=== PATIENT | female | born 1965 | race Two or more races ===

== ENCOUNTER 2022-09-25 07:50 | Outpatient (REF) | payer MEDICAID, SELFPAY ==
--- NOTE | ~2022-09-25 | MM_ITS ---
EXAMINATION: MM SCREENING DIGITAL BREAST TOMOSYNTHESIS, BILATERAL CLINICAL INFORMATION: Screening. Asymptomatic. The lifetime risk of breast cancer based on the Tyrer-Cuzick Model is 4%. COMPARISON: Mammography: 10/12/2019, 10/06/2018, 06/29/2017 TECHNIQUE: Digital breast tomosynthesis is performed in both the craniocaudal and mediolateral oblique views along with computer-aided detection (CAD). Synthesized 2D images are generated from the tomosynthesis. FINDINGS: The breasts are heterogeneously dense, which may obscure small masses (ACR BI-RADS breast composition Category c). There are scattered bilateral minor stable asymmetries. No developing density or architectural abnormality. Breast tissue composition borders on average fibroglandular. There are no significant masses, abnormal calcifications, or other abnormalities. The axilla and skin contours are unremarkable. MM/MM tomosynthesis screening BI IMPRESSION: No mammographic evidence of malignancy. ASSESSMENT: BI-RADS 2: Benign RECOMMENDATION: Routine annual mammography screening. This patient's information was entered into a reminder system with a target due date for their next mammogram.
== END 2022-09-25 07:51 | disposition home or self-care (01) ==
LOC: HO.MAMMO 07:50
PROVIDERS: PCP Nurse Practitioner Family; Visit Provider Nurse Practitioner Family
DX: Z12.31 Encounter for screening mammogram for malignant neoplasm of breast (principal)
CPT/HCPCS: 77063; 77067

== ENCOUNTER 2023-01-16 15:06 | Outpatient (REF) | payer MEDICAID, SELFPAY ==
--- NOTE | ~2023-01-16 | XR_ITS ---
EXAMINATION: XR HIP, LEFT CLINICAL INFORMATION: Left greater trochanteric bursitis. COMPARISON: Radiographs dated 06/08/2017 TECHNIQUE: AP and frog-leg lateral views of the left hip. FINDINGS: Bony alignment and mineralization are normal. The left acetabular joint space is well-maintained. The left acetabular roof shows slight subchondral sclerosis and a minimal peripheral osteophyte. The left femoral head is smooth. No fracture or dislocation is seen. The bilateral sacroiliac joints and the pubic symphysis are intact. There are multiple pelvic phleboliths. XR/XR hip LT min 2V IMPRESSION: There is slight osteoarthritic change of the left hip. No fracture or dislocation is seen.
== END 2023-01-16 15:07 | disposition home or self-care (01) ==
LOC: HO.HHCX 15:06
PROVIDERS: Visit Provider Nurse Practitioner Family
DX: M70.62 Trochanteric bursitis, left hip (principal)
CPT/HCPCS: 73502

== ENCOUNTER 2023-02-12 10:55 | Outpatient (AMB) | payer MEDICAID, SELFPAY ==
--- NOTE | 2023-02-12 10:58 | MHC.OFFVIS ---
Intake Intake Visit Reasons: Greater trochanteric Bursitis of Lt hip Intake Note: Clarita is a 57 year old female who presents today as a new patient with complaints of left hip pain. Pain is felt in the lateral aspect of the left hip, radiates to the knee and is worsened with movement. Utilizes topical heat and cold application. Takes Naproxen which does help but causes stomach upset. Allergies No Known Allergies [No Known Allergies*] Allergy (Unverified 01/05/20 19:10) HPI Greater trochanteric Bursitis of Lt hip HPI Details Clarita is a 57 year old woman who presents with complaints of left hip pain. She complains of pain in the lateral aspect of her hip, which occasionally radiates down towards her knee. Her pain is worse with movement. She denies any groin pain. She uses ice, heat, and Naproxen for pain relief, though the Naproxen causes GI upset. Review of Systems Const All systems reviewed & are unremarkable except as noted in HPI and below Physical Exam Const General: no acute distress, alert and awake Orientation/consciousness: patient oriented x3 HEENT Head: Yes normocephalic and Yes atraumatic Eyes EOM: EOMs intact bilaterally Resp Effort & Inspection: normal respiratory effort and able to speak in complete sentences Cardio Jugular venous distension: no JVD Skin General skin exam: turgor normal Rashes: no rashes Neuro General: patient oriented x3 Extrem Other: No groin pain with hip range of motion Tenderness to palpation along the anterior superior iliac spine. Less so along the greater trochanter. Psych Appearance: grossly normal Affect: normal affect Attitude: cooperative Results Reviewed Results Reviewed: I personally reviewed relevant radiographs. Nl left hip radiographs Assessment & Plan Assessment & Plan (1) Greater trochanteric bursitis of left hip: Code(s): M70.62 - Trochanteric bursitis, left hip Plan: This is a 57 year old woman with left trochanteric bursitis. She has pain in the lateral aspect of her left hip, worse with movement or and at night. She takes Naproxen, with good relief, but this causes GI upset. I discussed her diagnosis and treatment options. She deferred on injections and I discussed other treatment options. At this time she will let me know if there is anything additional she is interested in. Coding Level of Care Code Est Pt Level 3 (20462) Diagnoses Greater trochanteric bursitis of left hip M70.62
== END 2023-02-12 11:16 | disposition home or self-care (01) ==
PROVIDERS: PCP Nurse Practitioner Family; Visit Provider Orthopaedic Surgery
DX: M70.62 Trochanteric bursitis, left hip (principal)
CPT/HCPCS: 99213

== ENCOUNTER → 2023-02-12 10:55 | Outpatient (BNVA) | payer MEDICAID, SELFPAY | PROVIDERS: PCP Nurse Practitioner Family; Visit Provider Orthopaedic Surgery | DX: M70.62 Trochanteric bursitis, left hip (principal) | CPT/HCPCS: 99212 ==

== ENCOUNTER 2023-03-11 10:02 | Outpatient (REF) | payer MEDICAID, SELFPAY ==
[2023-03-13 17:18] LABS: Rubella IgG Antibody 7.28 Index; Rubeola IgG (Measles) >300.00 AU/mL
== END 2023-03-11 10:03 | disposition home or self-care (01) ==
LOC: HO.HHCL 10:02
PROVIDERS: Visit Provider Nurse Practitioner Family
DX: Z28.39 Other underimmunization status (principal)
CPT/HCPCS: 36415; 86735; 86762; 86765

== ENCOUNTER 2023-07-10 09:29 | Emergency (ER) | payer MEDICAID, SELFPAY ==
[2023-07-10 10:14] VITALS: BP 118/71; PULSE 89; RESP 16; TEMP 37.2; O2SAT 98; BMI 26.9
[2023-07-10 11:15] LABS: Influenza A PCR POSITIVE (Negative); Influenza B PCR NEGATIVE (Negative); Resp Syncy Virus RNA Qual PCR NEGATIVE (Negative); SARS COV2 PCR INHOUSE NEGATIVE (Negative)
[2023-07-10 12:23] VITALS: BP 126/73; PULSE 103; RESP 18; TEMP 36.9; O2SAT 98
[2023-07-10 12:24] VITALS: BP 126/73; PULSE 94; RESP 16; TEMP 36.7; O2SAT 98
--- NOTE | 2023-07-10 12:26 | ED.GENADULT ---
HPI - General Adult General Chief complaint: General Medical Stated complaint: Cough Headache Time Seen by Provider: 07/10/23 12:02 Source: patient Mode of arrival: ambulatory Limitations: no limitations History of Present Illness HPI narrative: Patient comes to the emergency room complaining of 3 days of nausea, diffuse body aches. One episode of vomiting and diarrhea this morning. Patient states that she has diffuse body aches. Patient denies chest pain or shortness of breath, no fevers. Related Data Previous Rx's Medication Instructions Recorded loperamide 2 mg capsule 2 mg PO Q4H PRN loose stool #14 07/10/23 caps ondansetron 4 mg disintegrating 4 mg PO Q6H PRN nausea and 07/10/23 tablet vomiting #14 tabs Allergies Allergy/AdvReac Type Severity Reaction Status Date / Time No Known Allergies Allergy Unverified 07/10/23 10:14 [No Known Allergies*] Review of Systems Review of Systems: Constitutional : No Weight loss, No Fever, No Chills, No Night Sweats, complaining of fatigue and generalized malaise ENT/Mouth : No Hearing loss, No Ear Pain, No Nasal Congestion, No Sinus Pain, No Hoarseness, No sore throat, No Rhinorrhea, No Swallowing Difficulty Eyes: No Eye Pain, No Swelling, No Redness, No Foreign Body, No Discharge, No Vision Changes Cardiovascular : No Chest Pain, No SOB, No Dyspnea on Exertion, No Orthopnea, No Edema, No Palpitations Respiratory : No Cough, No Sputum, No Wheezing, No Smoke Exposure, No Dyspnea Gastrointestinal : Complaining of nausea, 1 episode of vomiting and diarrhea, No Constipation, No abdominal Pain, No Hematochezia, No Melena Genitourinary : no irregular bleeding, No Dysuria, No Urinary Frequency, No Hematuria, No Urinary Incontinence, No Urgency, No Flank Pain, No Urinary Flow Changes, No Hesitancy Musculoskeletal : No joint pain, No Myalgias, No Joint Swelling Skin : No Skin Lesions, No rash Neuro : No Weakness, No Numbness, No Paresthesias, No Loss of Consciousness, No Dizziness, No Headache Psych : No Anxiety/Panic, No Depression, No SI/HI/AH/VH, No Social Issues, Heme/Lymph: No Bruising, No Bleeding,No Lymphadenopathy Endocrine : No Polyuria, No Polydipsia, No Temperature Intolerance Physical Exam ED Vital Signs: Vital Signs - 24 hr 07/10/23 10:14 07/10/23 12:23 07/10/23 12:24 Temperature 98.9 F 98.4 F 98.1 F Pulse Rate 89 103 H 94 Respiratory Rate 16 18 16 Blood Pressure 118/71 126/73 126/73 Pulse Oximetry 98 98 98 Oxygen Delivery Method Room Air Room Air Room Air BMI result Body Mass Index 26.9 Const Other: Appearance: Alert. Oriented X3. No acute distress. Well-appearing Eyes: Pupils equal, round and reactive to light. ENT: Pharynx normal. Neck: Normal inspection. Neck supple. No lymph nodes noted. No crepitus CVS: Normal heart rate and rhythm. Pulses normal. Normal S1 and S2 Respiratory: No respiratory distress. Breath sounds normal. No Wheezing. No rales Abdomen: Soft and nontender. No rigidity. No distention. Skin: Skin warm and dry. Normal skin color. Normal skin turgor. Extremities: No lower extremity edema. No Lacerations. No Rash Neuro: Oriented X 3. No motor deficit. No sensory deficit. Moving all extremities. No slurred speech. CN 2 through 12 grossly intact Psych: calm, cooperative, normal affect Medical Decision Making Medical Decision Making [facility] Narrative: -my interpretation of labs: Patient's serology test was positive for influenza. -patient does not seem dehydrated, patient well appearing, vitals normal, no fever, no tachycardic, normal blood pressure. Sepsis not suspected Differential Diagnosis Differential Diagnoses: The differential diagnosis associated with the presentation includes (Influenza, COVID, viral syndrome, gastroenteritis) Lab Data [facility] Lab Attestation statement: I reviewed the patient's lab results. Labs: Lab Results 07/10/23 Range/Units 10:22 Influenza Type A (PCR) POSITIVE A (Negative) Influenza Type B (PCR) NEGATIVE (Negative) RSV RNA Qual (PCR) NEGATIVE (Negative) SARS-CoV-2 RNA (RT-PCR) NEGATIVE (Negative) Discharge Plan Discharge Clinical Impression: Influenza A, Nausea & vomiting Patient Disposition: Home, Self-Care Instructions: Influenza (ED), Acute Nausea and Vomiting (ED) Additional Instructions: Please follow-up with your primary care physician tomorrow. If you have any worsening or new symptoms, please return to the emergency room or call 911 Prescriptions: New ondansetron 4 mg tablet,disintegrating 4 mg PO Q6H PRN (Reason: nausea and vomiting) Qty: 14 0RF loperamide 2 mg capsule 2 mg PO Q4H PRN (Reason: loose stool) Qty: 14 0RF Rx Instructions: administer after each loose stool until symptoms controlled; do not exceed 8 mg per 24 hrs Interventions: ED Discharge Assessment Last Done: 07/10/23 12:24
== END 2023-07-10 12:32 | disposition home or self-care (01) ==
PROVIDERS: Emergency Provider Emergency Medicine; PCP Nurse Practitioner Family
DX: J10.1 Influenza due to other identified influenza virus with other respiratory manifestations (principal); R11.2 Nausea with vomiting, unspecified; Z11.52 Encounter for screening for COVID-19; Z20.828 Contact with and (suspected) exposure to other viral communicable diseases
CPT/HCPCS: 0241U; 99282; 99283

== ENCOUNTER 2023-07-13 15:32 | Outpatient (REF) | payer MEDICAID, SELFPAY ==
[2023-07-13 17:53] LABS: Basophils Percent Auto 0.3 % (0-2); Eosinophils Absolute Auto 0.1 X10*3/uL (0.0-0.4); Eosinophils Percent Auto 0.9 % (0-4); Hematocrit 38.7 % (37.0-47.0); Hemoglobin 12.3 g/dl (12.0-16.0); Imm Gran Abs Auto 0.01 X10*3/uL (0.00-0.03); Imm Gran Pct Auto 0.2 % (0.0-0.4); Lymphocytes Absolute Auto 3.4 X10*3/uL (1.2-4.9); Lymphocytes Percent Auto 57.7 % (20-40); MANUAL DIFF FLAG SCAN; Mean Corpuscular HGB Conc 31.8 g/dl (31.0-35.0); Mean Corpuscular Hemoglobin 27.2 pg (27.0-33.0); Mean Corpuscular Volume 85.4 fL (80.0-98.0); Mean Platelet Volume 9.4 fL (9.4-12.3); Monocytes Absolute Auto 0.3 X10*3/uL (0.1-1.2); Monocytes Percent Auto 4.3 % (2-11); Neutrophils Absolute Auto 2.2 x10*3/uL (2.0-8.3); Neutrophils Percent Auto 36.6 % (45-73); Platelet Count 232 X10*3/uL (160-400); Red Blood Count 4.53 X10*6/uL (4.20-5.50); Red Cell Distribution Width 13.2 % (11.0-16.0); SCAN SMEAR FLAG 1; White Blood Count 5.9 X10*3/uL (4.8-10.8)
[2023-07-13 18:04] LABS: Alanine Aminotransferase 34 U/L (0-31); Albumin Level 4.2 g/dL (3.5-5.0); Alkaline Phosphatase 69 U/L (39-117); Anion Gap 10 (12-20); Aspartate Amino Transferase 32 U/L (5-31); Bilirubin Total 0.4 mg/dL (0.0-1.0); Blood Urea Nitrogen 16 mg/dL (9-16); Calcium 9.4 mg/dL (8.4-10.2); Carbon Dioxide 31 mmol/L (22-29); Chloride 105 mmol/L (96-108); Estimated Glomerular Filt Rate > 60; Glucose Random 91 mg/dL (60-115); Magnesium 2.1 mg/dL (1.6-2.6); Potassium 4.6 mmol/L (3.3-5.1); Sodium 141 mmol/L (135-145); Total Protein 7.3 g/dL (6.5-8.0)
[2023-07-13 18:24] LABS: SLIDE REVIEW VERIFIED
== END 2023-07-13 15:33 | disposition home or self-care (01) ==
LOC: HO.HHCL 15:32
PROVIDERS: Visit Provider Nurse Practitioner Family
DX: M79.661 Pain in right lower leg (principal); M79.662 Pain in left lower leg
CPT/HCPCS: 36415; 80053; 83735; 85025

== ENCOUNTER 2023-10-01 07:40 | Outpatient (REF) | payer MEDICAID, SELFPAY | END 2023-10-01 07:41 | disposition home or self-care (01) | LOC: HO.MAMMO 07:40 | PROVIDERS: PCP Nurse Practitioner Family; Visit Provider Nurse Practitioner Family | DX: Z12.31 Encounter for screening mammogram for malignant neoplasm of breast (principal) | CPT/HCPCS: 77063; 77067 ==

== ENCOUNTER → 2023-10-01 07:45 | Outpatient (BNV) | payer MEDICAID, SELFPAY | PROVIDERS: PCP Nurse Practitioner Family; Visit Provider Radiology Diagnostic Radiology | DX: Z12.31 Encounter for screening mammogram for malignant neoplasm of breast (principal) | CPT/HCPCS: 77063; 77067 ==

== ENCOUNTER 2024-02-25 15:03 | Emergency (ER) | payer MEDICAID, SELFPAY ==
--- NOTE | ~2024-02-25 | XR_ITS ---
EXAMINATION: XR LUMBOSACRAL SPINE CLINICAL INFORMATION: Pain. COMPARISON: None available. TECHNIQUE: Three views of the lumbosacral spine. FINDINGS: No acute compression deformity or subluxation. Mild multilevel intervertebral disc height loss and facet arthropathy. Small to moderate multilevel anterior marginal osteophytes more prominent in the thoracic spine. No significant paraspinal soft tissue abnormality. XR/XR lumbar spine 2-3V IMPRESSION: 1. No acute compression deformity or subluxation. 2. Mild to moderate lumbar spondylosis. Electronically signed by: Mirella Price MD 02/25/2024 06:21 PM [facility]
[2024-02-25 15:27] VITALS: BP 108/68; PULSE 71; RESP 16; TEMP 36.8; O2SAT 96; BMI 27.3
--- NOTE | 2024-02-25 15:31 | ED.BACK ---
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 The pain will occasionally radiate into bilateral thighs. She has been applying a heat pack to the area without improvement. She has not trialed any OTC pain meds for this. Denies blunt trauma or injury to the back. No hx of similar. Denies IV drug use. Denies fever, chills, neck pain, bowel or bladder incontinence or retention, numbness/tingling/weakness in the lower extremities, dysuria, hematuria, saddle anesthesia. physician office specialist utilized throughout visit to communicate with patient. Related Data Previous Rx's ?Medication ?Instructions ?Recorded loperamide 2 mg capsule 2 mg PO Q4H PRN loose stool #14 07/10/23 caps ondansetron 4 mg disintegrating 4 mg PO Q6H PRN nausea and 07/10/23 tablet vomiting #14 tabs lidocaine 5 % topical patch 1 patch topical DAILY #15 ea 02/25/24 (Lidoderm) naproxen 500 mg tablet 500 mg PO Q8-12H PRN pain (scale 02/25/24 score 1-3) #20 tabs Allergies Allergy/AdvReac Type Severity Reaction Status Date / Time sumatriptan [From IMITREX] Allergy Intermediate RASH Verified 02/25/24 19:57 Review of Systems Review of Systems: Constitutional: No fever, chills, fatigue, night sweats, weight changes ENT/Mouth: No ear pain, hearing loss, nasal congestion, sinus pain, rhinorrhea, sore throat Eyes: No eye pain, swelling, redness, vision changes, discharge Cardio: No chest pain, palpitations, ADHIKARI, orthopnea, peripheral edema Pulm: No SOB, cough, sputum, wheezing, dyspnea, hemoptysis GI: No nausea, vomiting, hematemesis, abdominal pain, diarrhea, constipation, hematochezia, melena : No irregular bleeding, dysuria, frequency, urgency, hesitancy, hematuria, flank pain, urinary flow changes, urinary incontinence or retention MSK: +back pain, No neck pain, joint pain, myalgias Skin: No lesions, rashes Neuro: No weakness, numbness, paresthesias, LOC, dizziness, headache All other systems reviewed and are negative. [facility] Past Medical History Attestation statement: The following information was validated with the patient. Source: old records reviewed and nursing notes reviewed Medical History Postmenopausal Screening for cervical cancer Physical exam Right sided sciatica Dyslipidemia Polyarthralgia Allergic rhinitis GERD (gastroesophageal reflux disease) Pain Surgical History History of hemorrhoidectomy History of tubal ligation Social History Social History Household Members: Spouse Housing: House Alcohol intake: never Patient Tobacco Use Status: Never used Tobacco Smoked in Last 30 Days: No e-Cigarette/Vaping Use: Never Used Second Hand Smoke Exposure: No Use of substances other than those prescribed or required for medical reasons: No Advance Directives: No Advance Directives Information Provided: No service: No Current occupational status: unemployed 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 Skin: Warm, dry, intact. No rashes or lesions. Head: Normocephalic, atraumatic. Cardiac: Chest wall symmetric. RRR Lungs: Normal respiratory effort without accessory muscle use. CTA bilaterally. No rales, rhonchi, or wheezes.? Abdomen: Soft, non-tender, non-distended. No rebound tenderness or guarding. no CVAT. Back: No midline spinous tenderness or step-off deformity. There is bilateral lumbar paraspinal muscle tenderness without palpable mass. Ext: Upper and lower extremities atraumatic, without tenderness, deformity, swelling or erythema. Full ROM throughout. Neuro: AOx3. Normal speech. Strength 5/5 intact throughout. No saddle anesthesia. Sensation intact to light touch. NV intact distally. Reflexes 2+ bilaterally. Ambulating with steady gait. Course Course Course Narrative: 193 -- xr lumbar spine w/o fracture. likely lumbar strain after bending over. toradol and lido patch provided in ED for pain control. I have offered to send Flexeril to pharmacy for further treatment however patient is declining at this time. Would like naproxen sent to her pharmacy. Patient has remained stable throughout ED visit today. Discussed worrisome signs and symptoms and when to return to the ED. All questions answered at this time. Patient is agreeable with disposition and stable for discharge. Medications Administered Discontinued Medications Generic Name Dose Route Start Last Admin Trade Name Freq PRN Reason Stop Dose Admin Ketorolac Tromethamine 30 mg 02/25/24 19:21 02/25/24 19:57 Ketorolac Tromethamine 30 Mg/Ml Vial IM 02/25/24 19:22 30 mg ONCE ONE Administration Lidocaine 1 patch 02/25/24 19:21 02/25/24 19:57 Lidocaine 4 % Patch Adh..Patch TRANSDERMA 02/25/24 19:22 1 patch ONCE ONE Administration Protocol Medical Decision Making Medical Decision Making [facility] Narrative: 58 year old female with pmhx significant for GERD and HDL presents to the ED today for evaluation of bilateral lower back pain which began after bending over to pick something up off of the floor 1 week ago. Vital signs stable. Afebrile. she is nontoxic appearing and in NAD. She is sitting comfortably on the exam bed. on exam, there is no midline spinous tenderness or step off deformity. there is bilateral paraspinal muscle tenderness without palpable mass. no cvat. nv intact distally. ambulating with steady gait. Differential diagnosis includes MSK sprain/strain, fracture, subluxation, disc herniation, sciatica. I do not have suspicion for UTI, nephrolithiasis, renal colic, hydronephrosis. Unlikely cord compression, cauda equina, Guillain-[place], epidural abscess. Plan for imaging, pain control, and re-evaluation. Differential Diagnosis Differential Diagnoses: The differential diagnosis associated with the presentation includes as above Admission/Observation Not indicated. Independent Interpretation I performed an independent interpretation of an: Plain X-Ray Interpretation: xr without fracture Radiology Impression Discussion of test interpretation with radiology: I have reviewed the radiologist's reading. Radiologist Impression: EXAMINATION: XR LUMBOSACRAL SPINE CLINICAL INFORMATION: Pain. COMPARISON: None available. TECHNIQUE: Three views of the lumbosacral spine. FINDINGS: No acute compression deformity or subluxation. Mild multilevel intervertebral disc height loss and facet arthropathy. Small to moderate multilevel anterior marginal osteophytes more prominent in the thoracic spine. No significant paraspinal soft tissue abnormality. XR/XR lumbar spine 2-3V IMPRESSION: 1. No acute compression deformity or subluxation. 2. Mild to moderate lumbar spondylosis. Electronically signed by: Mirella Price MD 02/25/2024 06:21 PM [facility] Prescription Management I considered prescription management with: Other (flexeril, lido patch) Social Determinants Patient?s care significantly limited by Social Determinants of Health including: Other Social Determinant of Health Critical Care Time Critical Care Time Critical Care Time: No Discharge Plan Discharge Clinical Impression: Lumbar spine strain Patient Disposition: Home, Self-Care Instructions: Muscle Strain (ED), Acute Low Back Pain (ED), Lower Back Exercises (ED) Additional Instructions: You were evaluated in the Emergency Department today for your back pain.? Your evaluation did not show signs of medical conditions requiring emergent intervention at this time. Avoid bending, lifting, or twisting. Use ice several times per day for 20 minutes at a time for the next 48 hours and then change to heat. Naproxen has been sent to your pharmacy for you to take as needed for pain. Do not take this with other NSAIDs such as ibuprofen or Aleve as this can cause increased risk of GI bleeding. Lidoderm patches are numbing patches. Apply to painful areas. Please schedule an appointment for follow-up with your primary care provider this week for further evaluation of your symptoms. Return to the Emergency Department if you experience worsening back pain, difficulty walking, fevers, numbness, tingling, incontinence, or any other concerning symptoms. In the case of an emergency call 911. Prescriptions: New lidocaine [Lidoderm] 5 % adhesive patch,medicated 1 patch topical DAILY Qty: 15 0RF Rx Instructions: leave on most painful area for up to 12 hrs naproxen 500 mg tablet 500 mg PO Q8-12H PRN (Reason: pain (scale score 1-3)) Qty: 20 0RF No Action ondansetron 4 mg tablet,disintegrating 4 mg PO Q6H PRN (Reason: nausea and vomiting) Qty: 14 0RF loperamide 2 mg capsule 2 mg PO Q4H PRN (Reason: loose stool) Qty: 14 0RF Rx Instructions: administer after each loose stool until symptoms controlled; do not exceed 8 mg per 24 hrs Stand Alone Forms: Work/School Release Interventions: ED Discharge Assessment Last Done: 02/25/24 20:09 Discharge Date/Time: 02/25/24 20:10 Print Language: Micronesian
[2024-02-25 19:57] VITALS: BP 101/58; PULSE 65; RESP 15; TEMP 36.6; O2SAT 98
[2024-02-25] MEDS: Ketorolac Tromethamine 30 MG/ML VIAL IM (19:57)
[2024-02-25] MEDS: Lidocaine 4 % Patch ADH..PATCH 1 PATCH TRANSDERMA (19:57)
[2024-02-25 20:09] VITALS: BP 101/58; PULSE 65; RESP 16; TEMP 36.6; O2SAT 98
== END 2024-02-25 20:10 | disposition home or self-care (01) ==
PROVIDERS: Emergency Provider Emergency Medicine
DX: S39.012A Strain of muscle, fascia and tendon of lower back, initial encounter (principal); X50.1XXA Overexertion from prolonged static or awkward postures, initial encounter; Y93.89 Activity, other specified; Y92.89 Other specified places as the place of occurrence of the external cause; Y99.8 Other external cause status; Z79.899 Other long term (current) drug therapy
CPT/HCPCS: 72100; 96372; 99284; J1885

== ENCOUNTER 2024-10-05 07:34 | Outpatient (REF) | payer MEDICAID, SELFPAY ==
--- NOTE | ~2024-10-05 | MM_ITS ---
EXAMINATION: MM SCREENING DIGITAL BREAST TOMOSYNTHESIS, BILATERAL CLINICAL INFORMATION: Screening. Asymptomatic. COMPARISON: Mammography: Comparison is made with available priors TECHNIQUE: Digital breast mammography with tomosynthesis is performed in both the craniocaudal and mediolateral oblique views along with computer-aided detection (CAD). FINDINGS: The breasts are heterogeneously dense, which may obscure small masses (ACR BI-RADS breast composition Category c). There are no significant masses, abnormal calcifications, or other abnormalities. MM/MM tomosynthesis screening BI IMPRESSION: No mammographic evidence of malignancy. ASSESSMENT: BI-RADS BI-RADS 1 - Negative RECOMMENDATION: Routine annual mammography screening. 1 year F/U This examination should not preclude the clinical evaluation of a suspicious palpable abnormality. This patient's information was entered into a reminder system with a target due date for their next mammogram. Electronically signed by: Anne Aguilar DO 10/10/2024 12:08 PM EDT
== END 2024-10-05 07:35 | disposition home or self-care (01) ==
LOC: HO.MAMMO 07:34
PROVIDERS: PCP Internal Medicine; Visit Provider Nurse Practitioner Family
DX: Z12.31 Encounter for screening mammogram for malignant neoplasm of breast (principal)
CPT/HCPCS: 77063; 77067

== ENCOUNTER → 2024-10-05 07:45 | Outpatient (BNV) | payer MEDICAID, SELFPAY | PROVIDERS: PCP Internal Medicine; Visit Provider Internal Medicine | DX: Z12.31 Encounter for screening mammogram for malignant neoplasm of breast (principal) | CPT/HCPCS: 77063; 77067 ==

== ENCOUNTER 2025-01-17 20:47 | Emergency (ER) | payer MEDICAID, SELFPAY ==
--- NOTE | ~2025-01-17 | XR_ITS ---
CLINICAL HISTORY: pain compression fx? 3 views lumbar spine Comparison: X-rays of the lumbar spine from 02/25/2024 Findings: Normal heights of the 5 lumbar vertebrae. No significant listhesis or change in vertebral alignments. Degenerative disc changes and facet arthropathy redemonstrated. Sacrum, SI joints, and hips are obscured. Moderate stool burden partially imaged in the [id number]. IMPRESSION: 1. No acute compression fracture of the imaged lumbar vertebrae. 2. Degenerative changes include facet arthropathy. This document has been electronically signed by: Kraig Mancia MD on 01/18/2025 02:34:21
[2025-01-17 21:12] VITALS: PULSE 71; RESP 16; TEMP 36.9; O2SAT 98; BMI 26.8
--- OUTSIDE RECORDS SUMMARY | 2025-01-17 22:42 | XMS_ITS | Encounter Summary ---
Author Organization [employer] Address [address] [facility] 7[address] [place] [address] Care Team Providers Care Laser Beam Trim Operator Name Role Phone Wendy Delaney Primary Care Provider [phone] Meagan Melendez MD Primary Care Provide r Encounter Details Date Type Department Care Team ([facility] st Contact Info) Description 02/04/[address] [facility] [address] [place] [address] Wendy Delaney FNP [address] [place] [address] Immunization deficiency (Primary Dx) Social History Tobacco Use Types Packs/Day Years Used Date Smoking Tobacco: Never Smokeless Tobacco: Never Alcohol Use Standard Drinks/Week Comments Never 0 (1 standard drink = 0.6 oz pur e alcohol) Depression Answer Date Recorded Patient Health Questionnaire-9 Score 1 07/18/2022 Housing Stability Answer Date Recorded What is your housing situation today? I have samantha davidson 02/02/[address] you li ve. Do you have problems with any of the following? None of the above 02/02/2023 Food Insecurity Answer Date Recorded Within the past 12 months, y ou worried that your food would run out before you got money to buy more: Never True 02/02/2023 Within the past 12 months,th e food you bought just didn't last and you didn't have enough money to get more: Never True Transportation Answer Date Recorded In the past 12 months, has l ack of transportation kept you from medical appts, meetings, work or from getting things needed for daily living? No 02/02/2023 Utilities Answer Date Recorded In the past 12 months, has t he electric, gas, oil or water company threatened to shut off services in your home? No 02/02/2023 Depression Answer Date Recorded Patient Health Questionnaire-2 Score 0 07/18/2022 Comments Unknown Sex and Gender Information Value Date Recorded Sex Assigned at Female 02/17/2022 10:30 AM EDT Legal Sex Female 10:30 AM EDT Gender Identity Female 02/17/2022 10:30 AM EDT Sexual Orientation Straight 02/17/2022 10 :30 AM EDT documented as of this encounter Plan of Treatment Upcoming Encounters Date Type Department Care Team (Late st Contact Info) Description 03/07/2025 2:30 PM EST Office Visit [facility] [address] [place] [address] Juan, [place], OD [address] [place] [address] documented as of this encounter Procedures Procedure Name Priority Date/Time Associated Diagnosis Comments MEASLES, MUMPS, AND RUBELLA (MMR) AB (IGG) PANEL, IMMUNE STATUS Routine 03/11/2023 10:07 AM EST Immunization deficiency documented in this encounter Results * Measles, Mumps, and Rubella (MMR) Antibodies??(IgG) Panel, Immune Status (03/11/2023 10:07 AM EST) Mumps Virus IgG Antibody 106.00 AU/mL [facility] Comment:AU/mL Interpretation ------- <9.00 Not consistent with immunity9.00-10.99 Equivocal>10.99 Consistent with immunityThe presence of mumps IgG antibody suggests immunizationor past or current infection with mumps virus. Rubella IgG Antibody 7.28 Index [facility] Comment:Index Interpretation ----- <0.90 Not consistent with immunity 0.90-0.99 Equivocal > or = 1.00 Consistent with immunityThe presence of rubella IgG antibody suggestsimmunization or past or current infection withrubella virus.THIS TEST WAS PERFORMED AT:[facility] [place] [id number] REAL MD Rubeola IgG (Measles) >300.00 AU/mL [facility] Comment:AU/mL Interpretation ----- <13.50 Not consistent with tkeguhcv41.50-16.49 Equivocal>16.49 Consistent with immunityThe presence of measles IgG suggests immunization orpast or current infection with measles virus.For additional information, please refer [email or web address].[employer]/faq/[email or web address](This link is being provided for informational/educational purposes only.) Blood 03/11/2023 10:0 7 AM EST 03/11/2023 11:59 AM EST Wendy RAMIREZ LAB BLOOD ORDERABLES Final Resu lt [facility] [address] [place] [address] [phone] documented in this encounter Visit Diagnoses Diagnosis Immunization deficiency- Primary documented in this encounter Additional Health Concerns Assessment Noted Time PHQ-9 Depression Total Score: 1 07/19/19 23 2:13 PM EDT documented as of this encounter Care Teams Laser Beam Trim Operator Relationship Specialty Start Date End Date Wendy Delaney FNP [address] [place] [address] PCP - General Family Medicine 11/06/22 12/22/23 Meagan Melendez MD [address] [place] [address] PCP - General Internal Medicine 12/23/23 documented as of this encounter
--- OUTSIDE RECORDS SUMMARY | 2025-01-17 22:42 | XMS_ITS | Clinical Summary ---
Author Organization [employer] Address [address] [facility] 7[address] [place] [address] Care Team Providers Care Data Warehousing Specialist Name Role Phone Meagan Melendez MD Primary Care Provide r Allergies No known active allergies Medications pantoprazole (Protonix) 40 MG EC tabletIndicatio ns:PUD (peptic ulcer disease) Take 1 tablet (40 mg) by mouth before breakfast. Do not crush, chew, or split. 30 tablet 11 4 03/14/20 25 Active cetirizine (ZyrTEC) 10 MG tabletIndicatio ns:Rash TAKE 1 TABLET BY MOUTH DAILY AT BEDTIME NEEDED 90 tablet 1 5 Active triamcinolone (Kenalog) 0.1 % cream Apply topically if needed in the morning and at bedtime (pain and swelling). 45 g 3 5 Active Active Problems Problem Noted Date Diagnosed Date PUD (peptic ulcer disease) 04/07/2024 Assessment & Plan (04/07/2024 7:23 PM EST): Start ppi, reviewed low acid diet, monitor for worsening symptoms. Discontinue naproxen Chronic back pain 04/07/2024 Assessment & Plan (04/07/2024 7:24 PM EST): Acetaminophen ordered for chronic back pain Immunizations Immunization Administration Dates Next Due Hep A, Adult 11/20/2015,12/11/2014 Hep B, adult 09/15/2013 Tdap 08/18/2008 Family History Medical History Relation Name Comments Coronary artery disease Father Diabetes type II Mother Hypertension Mother Stroke Mother Relation Name Status Comments Father Mother Social History Tobacco Use Types Packs/Day Years Used Date Smoking Tobacco: Never Smokeless Tobacco: Never Tobacco Cessation:Counseling Given: Not Answered Alcohol Use Standard Drinks/Week Comments Never 0 (1 standard drink = 0.6 oz pur e alcohol) Depression Answer Date Recorded Patient Health Questionnaire-9 Score 0 03/14/2024 Patient Health Questionnaire-9 Score 0 03/14/2024 Last PHQ-9: Questionnaire Data Not on file 1 05/14/2023 Housing Stability Answer Date Recorded What is your housing situation today? I have samantha davidson 03/10/[address] you li ve. Do you have problems with any of the following? None of the above 03/10/2024 Food Insecurity Answer Date Recorded Within the past 12 months, y ou worried that your food would run out before you got money to buy more: Never True 03/10/2024 Within the past 12 months,th e food you bought just didn't last and you didn't have enough money to get more: Never True Transportation Answer Date Recorded In the past 12 months, has l ack of transportation kept you from medical appts, meetings, work or from getting things needed for daily living? No 03/10/2024 Utilities Answer Date Recorded In the past 12 months, has t he electric, gas, oil or water company threatened to shut off services in your home? No 03/10/2024 Depression Answer Date Recorded Patient Health Questionnaire-2 Score 0 03/14/2024 Internet Access Answer Date Recorded Internet Access Q1 Yes 03/10/2024 Internet Access Q2 Not on file 03/10/2024 Comments Unknown Sex and Gender Information Value Date Recorded Sex Assigned at Female 02/17/2022 10:30 AM EDT Legal Sex Female 10:30 AM EDT Gender Identity Female 02/17/2022 10:30 AM EDT Sexual Orientation Straight 02/17/2022 10 :30 AM EDT Last Filed Vital Signs Vital Sign Reading Time Taken Comments Blood Pressure 107/66 10/10/2024 2:09 PM EDT Pulse 81 10/10/2024 2:09 PM EDT Temperature 36.8 C (98.3 F) 10/10/2024 2:09 PM EDT Respiratory Rate 17 10/10/2024 2:09 PM EDT Oxygen Saturation 97% 08/11/2024 1:42 PM EDT Inhaled Oxygen Concentration - - Weight 64.4 kg (142 lb) 10/10/2024 2:09 PM EDT Height 152.4 cm (5') 10/10/2024 2:09 PM EDT Body Mass Index 27.73 10/10/2024 2:09 PM EDT Plan of Treatment Upcoming Encounters Date Type Department Care Team (Late st Contact Info) Description 03/07/2025 2:30 PM EST Office Visit [facility] [address] [place] [address] Juan, [place], OD [address] [place] [address] Health Maintenance Due Date Last Done Comments CT Colonography 1967 FIT DNA/Cologuard 1967 FIT 1967 FOBT 1965 HIV Screening 1965 Sigmoidoscopy 1965 Disability Screening 1967 Hepatitis C Screening 06/26/1985 Pap Smear 06/26/1988 Cervical Cancer Screening 06/26/1997 HPV/Cotest 06/26/1997 Hepatitis B Vaccines (2 of 3 - 19+ 3-dose series) 10/13/2013 09/15/2013 Pneumococcal Vaccine: 50+ Years (1 of 1 - PCV) 06/26/2017 Zoster Vaccines (1 of 2) 06/26/2017 DTaP/Tdap/Td Vaccines (2 - Td or Tdap) 08/18/2018 08/18/2008 COVID-19 Vaccine (1 - 2023- season) 2024 Influenza Vaccine (#1) 2024 SDOH Screening 03/10/2025 03/10/2024 Alcohol/Substance Use Screening 03/14/2025 03/14/2024 Depression Screening 03/14/2025 03/14/2024, 03/14/20 24 Mammogram 10/05/2025 10/05/2024, 09/18, 09/25/2022, Additional history exists Tobacco Screening 10/10/2025 10/10/2024 Colonoscopy 08/20/2027 Colorectal Cancer Screening 08/20/2027 RSV Patients and Patients Aged 60 years or older (1 - 1-dose 75+ series) 06/26/2042 Hepatitis A Vaccines Aged Out 11/20/2015, 12/12/19 15 No longer eligible based on patient's age to complete this topic HIB Vaccines Aged Out No longer eligi ble based on patient's age to complete this topic HPV Vaccines Aged Out No longer eligi ble based on patient's age to complete this topic IPV Vaccines Aged Out No longer eligi ble based on patient's age to complete this topic Meningococcal B Vaccine Aged Out No l onger eligible based on patient's age to complete this topic Meningococcal Vaccine Aged Out No kiran henna eligible based on patient's age to complete this topic RSV under 20 months Aged Out No longe r eligible based on patient's age to complete this topic Rotavirus Vaccines Aged Out No longer eligible based on patient's age to complete this topic Procedures Procedure Name Priority Date/Time Associated Diagnosis Comments BI MAMMOGRAM SCREENING TOMOSYNTHESIS BILATERAL Routine 10/05/2024 7:40 AM EDT from Last 3 Months or Most Recently Relevant to Health Maintenance Results * BI Mammogram Screening Tomosynthesis Bilateral (10/05/2024 7:40 AM EDT) Anatomical Region Laterality Modality Breast Bilateral Mammography 10/05/2024 7:40 AM EDT Narrative 10/10/2024 12:11 PM EDT [facility] [address] [place] [address] Mammography Report Signed Patient: Clarita Potter MR#: [id number] : 1965 Acct:[id number] Age/Sex: 59 / F ADM Date: 10/05/24 Loc: HO.MAMMO Attending Dr: Wendy Delaney NP Ordering Physician: Wendy Delaney NP Results: 1Negativ e Date of Service: 10/05/24 Follow Up: 1 Year From Orig inal Mammogram Procedure(s): MM tomosynthesis screening BI Accession Number(s): [id number] cc: Wendy Delaney NP; Osborn Doc,Nargis MD EXAMINATION: MM SCREENING DIGITAL BREAST TOMOSYNTHESIS, BILATERAL CLINICAL INFORMATION: Screening. Asymptomatic. COMPARISON: Mammography: Comparison is made with available priors TECHNIQUE: Digital breast mammography with tomosynthesis is performed in both the craniocaudal and mediolateral oblique views along with computer-aided detection (CAD). FINDINGS: The breasts are heterogeneously dense, which may obscure small masses (ACR BI-RADS breast composition Category c). There are no significant masses, abnormal calcifications, or other abnormalities. MM/MM tomosynthesis screening BI IMPRESSION: No mammographic evidence of malignancy. ASSESSMENT: BI-RADS BI-RADS 1 - Negative RECOMMENDATION: Routine annual mammography screening. 1 year F/U This examination should not preclude the clinical evaluation of a suspicious palpable abnormality. This patient's information was entered into a reminder system with a target due date for their next mammogram. Electronically signed by: Anne Aguilar DO 10/10/2024 12:08 PM EDT RP Dictated By: Anne Aguilar DO Signed By: <Electronically signed by Anne Aguilar DO in OV> 10/10/24 1208 DD/ 0740 TD/TT: 10/05/24 0800 Custody Assistant: Procedure Note Donotuseinterpreter, Image - 10/10/2024 [facility] [address] [place], [place] [address] Mammography Report Signed Patient: Clarita Potter#: [id number] : 1965Acct:[id number] Age/Sex: 59 / FADM Date: 10/05/24 Loc: HO.MAMMO Attending Dr: Wendy Delaney NP Ordering Physician: Wendy Delaney NPResults: 1Negativ e Date of Service: 10/05/24Follow Up: 1 Year From Orig inal Mammogram Procedure(s): MM tomosynthesis screening BI Accession Number(s): [id number] cc: Wendy Delaney GASOLINE PUMP INSTALLER; Ana Lagunas MD EXAMINATION: MM SCREENING DIGITAL BREAST TOMOSYNTHESIS, BILATERAL CLINICAL INFORMATION: Screening. Asymptomatic. COMPARISON: Mammography: Comparison is made with available priors TECHNIQUE: Digital breast mammography with tomosynthesis is performed in both the craniocaudal and mediolateral oblique views along with computer-aided detection (CAD). FINDINGS: The breasts are heterogeneously dense, which may obscure small masses (ACR BI-RADS breast composition Category c). There are no significant masses, abnormal calcifications, or other abnormalities. MM/MM tomosynthesis screening BI IMPRESSION: No mammographic evidence of malignancy. ASSESSMENT: BI-RADS BI-RADS 1 - Negative RECOMMENDATION: Routine annual mammography screening. 1 year F/U This examination should not preclude the clinical evaluation of a suspicious palpable abnormality. This patient's information was entered into a reminder system with a target due date for their next mammogram. Electronically signed by: Anne Aguilar DO 10/10/2024 12:08 PM EDT RP Dictated By: Anne Aguilar DO Signed By: <Electronically signed by Anne Aguilar DO in OV> 10/10/24 1208 DD/ 0740 TD/TT: 10/05/24 0800 Custody Assistant: Wendy Delaney ENGINEERING INTERN IMG BI PROCEDURES Final Result from Last 3 Months or Most Recently Relevant to Health Maintenance Insurance [facility] [address] [place] [id number] Care Teams Data Warehousing Specialist Relationship Specialty Start Date End Date Meagan Melendez MD [address] [place] [id number] PCP - General Internal Medicine 12/23/23
[2025-01-17 23:16] LABS: Appearance Urine Clear; Glucose Urine UA Negative (Negative); PH 7.5 (5.0-9.0); Specific Gravity - Urine 1.015 (1.005-1.025); UMIC TRIGGER UACC YES
[2025-01-17 23:56] LABS: UACC Culture Trigger YES
[2025-01-18 01:47] VITALS: BP 100/61; PULSE 62; RESP 20; TEMP 36.4; O2SAT 97
--- NOTE | 2025-01-18 01:51 | ED.GENADULT ---
HPI - General Adult General Chief complaint: Back Pain/Injury Stated complaint: Back pain Time Seen by Provider: 01/18/25 00:20 Source: patient Limitations: language barrier History of Present Illness ED Provider: Melanie Oh PA-C HPI narrative: 59-year-old female with a history of fibromyalgia, chronic lumbar pain, migraine, polyarthralgia, prior bursitis of left hip, prior lumbar radiculopathy, who presents with low back pain x1 day. Patient denies new activity, heavy lifting or fall that could have precipitated her symptoms. The pain wraps around like a band across the low back with radiation down both legs. Denies paresthesia, weakness of lower extremities, urinary retention or bowel incontinence. Denies dysuria, hematuria, history of kidney stones, nausea vomiting or fever. Related Data Previous Rx's ?Medication ?Instructions ?Recorded loperamide 2 mg capsule 2 mg PO Q4H PRN loose stool #14 07/10/23 caps ondansetron 4 mg disintegrating 4 mg PO Q6H PRN nausea and 07/10/23 tablet vomiting #14 tabs lidocaine 5 % topical patch 1 patch topical DAILY #15 ea 02/25/24 (Lidoderm) naproxen 500 mg tablet 500 mg PO Q8-12H PRN pain (scale 02/25/24 score 1-3) #20 tabs ketorolac 10 mg tablet 10 mg PO Q6H PRN pain #20 tabs 01/18/25 methocarbamol 750 mg tablet 1,500 mg (2 x 750 mg) PO Q8H PRN 01/18/25 pain, moderate #24 tabs methylprednisolone 4 mg tablets in 4 mg PO QAM #21 ea 01/18/25 a dose pack (Medrol (Madhav)) Allergies Allergy/AdvReac Type Severity Reaction Status Date / Time sumatriptan (From IMITREX) Allergy Intermediate RASH Verified 01/17/25 21:13 Review of Systems Review of Systems: Yes all other systems are reviewed and are negative Constitutional: Constitutional: Denies fatigue and Denies fever(s) Cardiovascular: Cardiovascular: Denies chest pain and Denies dyspnea Respiratory: Respiratory: Denies dyspnea Gastrointestinal: Gastrointestinal: Denies abdominal pain, Denies nausea and Denies vomiting Genitourinary: Genitourinary: Denies dysuria and Denies flank pain Musculoskeletal: Musculoskeletal: Reports back pain, Denies muscle weakness, Denies numbness, Reports radiating pain into limb and Denies tingling Neurologic: Denies numbness and Denies tingling Endocrine: Endocrine: Denies fatigue [facility] Past Medical History Attestation statement: The following information was validated with the patient. Medical History Postmenopausal Screening for cervical cancer Physical exam Right sided sciatica Dyslipidemia Polyarthralgia Allergic rhinitis GERD (gastroesophageal reflux disease) Pain Surgical History History of hemorrhoidectomy History of tubal ligation Social History Social History Household Members: Spouse Housing: House Alcohol intake: never Patient Tobacco Use Status: Never used Tobacco Smoked in Last 30 Days: No e-Cigarette/Vaping Use: Never Used Second Hand Smoke Exposure: No Use of substances other than those prescribed or required for medical reasons: No Advance Directives: No Advance Directives Information Provided: No Do you have a plan to hurt others: No Plan service: No Current occupational status: unemployed 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 Cognitive needs: No Hearing needs: No Vision needs: Yes Physical Exam ED Vital Signs: Vital Signs - 24 hr 01/17/25 21:12 01/18/25 01:47 Temperature 98.5 F 97.6 F Pulse Rate 71 62 Respiratory Rate 16 20 Blood Pressure 100/61 Pulse Oximetry 98 97 Oxygen Delivery Method Room Air Room Air BMI result Body Mass Index 26.8 Const Other: Alert well-appearing Orientation/consciousness: patient oriented x3 Resp Effort & Inspection: normal respiratory effort Cardio Other: Normal peripheral perfusion Back/Spine/Pelvis Other: No palpable regions of pain no step-offs Skin Other: Warm dry no rash Neuro General: patient oriented x3, gait normal, no focal motor deficits and CN's II-XI intact bilaterally Extrem Other: Strength 5/5 bilateral lower extremities with resistance Psych Other: Cooperative Medications Administered Discontinued Medications Generic Name Dose Route Start Last Admin Trade Name Freq PRN Reason Stop Dose Admin Ketorolac Tromethamine 15 mg 01/18/25 00:20 01/18/25 00:29 Ketorolac Tromethamine 15 Mg/Ml Vial IM 01/18/25 00:21 15 mg ONCE ONE Administration Medical Decision Making Medical Decision Making [facility] Narrative: 59-year-old female with a history of fibromyalgia, chronic lumbar pain, migraine, polyarthralgia, prior bursitis of left hip, prior lumbar radiculopathy, who presents with low back pain x1 day. Patient denies new activity, heavy lifting or fall that could have precipitated her symptoms. The pain wraps around like a band across the low back with radiation down both legs. Denies paresthesia, weakness of lower extremities, urinary retention or bowel incontinence. Denies dysuria, hematuria, history of kidney stones, nausea vomiting or fever. Problem: Chronic pain syndromes History: Per patient I have considered the following differential diagnoses: Lumbar strain, compression fracture, lumbar radiculopathy, cauda equina Plan: I ordered an x-ray it is pending, the patient has chronic lumbar pain, she is having radicular symptoms without red flag signs symptoms concerning for cord compression. We will treat accordingly. Her discomfort is not consistent with a UTI, pyelonephritis or renal colic. She has no symptoms, no mid back pain/flank pain, no active GI symptoms or fever. Urine obtained. I have independently reviewed the following tests: Labs: Urine not infected X-ray lumbar spine: Findings: Normal heights of the 5 lumbar vertebrae. No significant listhesis or change in vertebral alignments. Degenerative disc changes and facet arthropathy redemonstrated. Sacrum, SI joints, and hips are obscured. Moderate stool burden partially imaged in the [id number]. IMPRESSION: 1. No acute compression fracture of the imaged lumbar vertebrae. 2. Degenerative changes include facet arthropathy. Differential Diagnosis Differential Diagnoses: The differential diagnosis associated with the presentation includes See medical decision-making Admission/Observation Consideration of admission/observation: Escalation of care including admission/observation considered Not applicable Lab Data [facility] Lab Attestation statement: I reviewed the patient's lab results. Labs: Lab Results 01/17/25 Range/Units 23:07 Urine Color Yellow Urine Appearance Clear Urine pH 7.5 (5.0-9.0) Ur Specific Gillett 1.015 (1.005-1.025) Urine Protein Negative (Neg-Trace) mg/dL Urine Glucose (UA) Negative (Negative) mg/dL Urine Ketones Negative (Negative) mg/dL Urine Blood Negative (Negative) Urine Nitrite Negative (Negative) Ur Leukocyte Esterase Small (1+) H (Negative) Urine RBC 0-2 (0-2) /HPF Urine WBC 0-5 (0-5) /HPF Ur Squamous Epith Cells 6-10 (0-2) /HPF Urine Bacteria None Seen (None Seen) Hyaline Casts 0-2 (0-2) /LPF Radiology Impression Discussion of test interpretation with radiology: I have reviewed the radiologist's reading. Discharge Plan Discharge Clinical Impression: Bilateral lumbar radiculopathy, Osteoarthritis of lumbar spine, Constipation Patient Disposition: Home, Self-Care Instructions: Constipation (ED), Osteoarthritis (ED), Lumbar Radiculopathy (ED) Additional Instructions: You are being treated for lumbar radiculopathy. The x-ray revealed that you have significant arthritic changes, this is not new from your baseline. See home care instructions. Use the ketorolac as directed, take the medication with food. Take the Medrol Dosepak as directed take this with food this is another anti-inflammatory. Use the methocarbamol as needed for further pain, this is a muscle relaxant. This medication will cause drowsiness do not drive or operate machinery while taking the medication. You were also incidentally found to be constipated. See home care instructions. You need to use a stool softener such as Colace this can be purchased [id number] use it twice a day. Use [id number] MiraLax, 3 to 4 times a day, until you begin having multiple large volume bowel movements. Follow up with primary care as needed. Prescriptions: New ketorolac 10 mg tablet 10 mg PO Q6H PRN (Reason: pain) Qty: 20 0RF Rx Instructions: maximum total duration of 5 days from all oral, intranasal, or parenteral formulations. Patient received an intramuscular dose of Toradol here in the emergency room methylprednisolone [Medrol (Madhav)] 4 mg tablets,dose pack 4 mg PO QAM Qty: 21 0RF Rx Instructions: Take per package instructions methocarbamol 750 mg tablet 1,500 mg PO Q8H PRN (Reason: pain, moderate) Qty: 24 0RF No Action ondansetron 4 mg tablet,disintegrating 4 mg PO Q6H PRN (Reason: nausea and vomiting) Qty: 14 0RF loperamide 2 mg capsule 2 mg PO Q4H PRN (Reason: loose stool) Qty: 14 0RF Rx Instructions: administer after each loose stool until symptoms controlled; do not exceed 8 mg per 24 hrs lidocaine [Lidoderm] 5 % adhesive patch,medicated 1 patch topical DAILY Qty: 15 0RF Rx Instructions: leave on most painful area for up to 12 hrs naproxen 500 mg tablet 500 mg PO Q8-12H PRN (Reason: pain (scale score 1-3)) Qty: 20 0RF Stand Alone Forms: Work/School Release Print Language: Swedish
[2025-01-18 03:13] VITALS: BP 100/61; PULSE 62; RESP 20; TEMP 36.4; O2SAT 97
== END 2025-01-18 03:14 | disposition home or self-care (01) ==
PROVIDERS: Emergency Provider Emergency Medicine; PCP Internal Medicine
DX: M54.16 Radiculopathy, lumbar region (principal); M47.816 Spondylosis without myelopathy or radiculopathy, lumbar region; K59.00 Constipation, unspecified
CPT/HCPCS: 72100; 81001; 87086; 87147; 96372; 99284; J1885

== ENCOUNTER → 2025-01-18 00:20 | Outpatient (BNV) | payer MEDICAID, SELFPAY | PROVIDERS: Emergency Provider Emergency Medicine; PCP Internal Medicine; Visit Provider Radiology Neuroradiology | DX: M51.360 Other intervertebral disc degeneration, lumbar region with discogenic back pain only (principal) | CPT/HCPCS: 72100 ==

== ENCOUNTER 2025-02-13 16:29 | Emergency (ER) | payer MEDICAID, SELFPAY ==
--- NOTE | ~2025-02-13 | CT_ITS ---
CLINICAL HISTORY: head strike, pain CT head without contrast Comparison: None provided Findings: No intra-axial mass, midline shift, hydrocephalus, or acute hemorrhage. No significant atrophy. Mild focal right anterior and lateral frontal periventricular white matter hypodensities nonspecific and may represent white matter chronic ischemic changes. There is no sinus or mastoid fluid. The orbits are within normal limits. There is no acute skull fracture. IMPRESSION: 1. No acute intracranial findings. 2. Mild focal supratentorial periventricular right frontal hypodensities may represent white matter chronic ischemic changes. This document has been electronically signed by: Ronel Cerrato MD on 02/13/2025 19:06:12
[2025-02-13 17:11] VITALS: BP 118/62; PULSE 79; RESP 16; TEMP 36.6; O2SAT 99; BMI 27.5
--- NOTE | 2025-02-13 17:12 | ED_ITS ---
HPI - General Adult General Chief complaint: Wound/Laceration Stated complaint: injury Time Seen by Provider: 02/13/25 20:14 Source: patient, RN notes reviewed, old records reviewed and hourly sign language interpreter Mode of arrival: ambulatory Limitations: language barrier History of Present Illness ED Provider: Esthela HPI narrative: 59-year-old female presents for evaluation of a head injury. She reports that she was parked on a hill. Her car door started to close automatically and struck her on the forehead above her left eye. There was no loss of consciousness pain She had a small amount of bleeding. She is not anticoagulated She has mild pain Related Data Previous Rx's ?Medication ?Instructions ?Recorded loperamide 2 mg capsule 2 mg PO Q4H PRN loose stool #14 07/10/23 caps ondansetron 4 mg disintegrating 4 mg PO Q6H PRN nausea and 07/10/23 tablet vomiting #14 tabs lidocaine 5 % topical patch 1 patch topical DAILY #15 ea 02/25/24 (Lidoderm) naproxen 500 mg tablet 500 mg PO Q8-12H PRN pain (s slick 02/25/24 score 1-3) #20 tabs ketorolac 10 mg tablet 10 mg PO Q6H PRN pain #20 ta bs 01/18/25 methocarbamol 750 mg tablet 1,500 mg (2 x 750 mg) PO Q 8H PRN 01/18/25 pain, moderate #24 tabs methylprednisolone 4 mg tablets in 4 mg PO QAM #21 ea 01/18/25 a dose pack (Medrol (Madhav)) Allergies Allergy/AdvReac Type Severity Reaction Status Date / Time sumatriptan (From IMITREX) Allergy Intermediate RASH Verified 02/13/25 17:13 Review of Systems Constitutional: Constitutional: Reports headache(s) ENT: Reports headache(s) Integumentary/Breasts: Skin/Breast: Reports wounds Neurologic: Reports headache(s) [facility] Past Medical History Medical History Postmenopausal Screening for cervical cancer Physical exam Right sided sciatica Dyslipidemia Polyarthralgia Allergic rhinitis GERD (gastroesophageal reflux disease) Pain Surgical History History of hemorrhoidectomy History of tubal ligation Social History Social History Household Members: Spouse Housing: House Alcohol intake: never Patient Tobacco Use Status: Never used Tobacco e-Cigarette/Vaping Use: Never Used Second Hand Smoke Exposure: No Advance Directives: No Advance Directives Information Provided: No service: No Current occupational status: unemployed 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 Cognitive needs: No Hearing needs: No Vision needs: Yes Physical Exam ED Vital Signs: Vital Signs - 24 hr 02/13/25 17:11 02/13/25 20:43 Temperature 97.8 F 97.8 F Pulse Rate 79 79 Respiratory Rate 16 16 Blood Pressure 118/62 118/62 Pulse Oximetry 99 99 Oxygen Delivery Method Room Air Room Air BMI result Body Mass Index 27.5 Const General: healthy appearing, comfortable, no acute distress, alert and awake Nutritional Appearance: well nourished Orientation/consciousness: patient oriented x3 Eyes Other: There has been a 1 cm linear, partial-thickness laceration to the medial side of the left eyebrow. No active bleeding. No step-offs or deformities on palpation of the left orbit Eyelids: Yes eyelids normal Conjunctivae: conjunctivae normal Sclerae: sclerae normal Corneas: corneas normal Pupils: Equal, round and reactive pupils present EOM: EOMs intact bilaterally Resp Effort & Inspection: normal respiratory effort, able to speak in complete sentences and not labored GI Inspection: No distended Palpation (GI): Soft to palpation, not firm, nontender, no guarding and not rigid Skin General skin exam: elasticity normal Neuro General: patient oriented x3 Cranial nerves: Yes Equal, round and reactive pupils present and Yes Bilaterally intact EOM present Cognition (Neuro): normal cognition Extrem Other: Moving all extremities well without any obvious deformities Course Course Course Narrative: Rapid medical examination performed in triage by Elif Olivera PA-C. Patient is a 59] year old assigned female at presenting to the emergency department with a left eyebrow laceration after hitting her head on a car door. Patient denies any loss of consciousness with the incident. Detailed physical exam and review of systems are deferred to the access clinician. Imaging ordered. Patient placed back in the waiting room pending room availability and results. Reevaluation(s) Reevaluation #1: I cleaned the dried blood from the wound myself. There was no gaping wound, the wound edges were well approximated and could not be pulled apart. There was no active bleeding even after cleaning the wound. Time: 21:00 Procedures Laceration Laceration 1: Site: face Side (If applicable): left (eyebrow) Size (cm): 1 Description: linear Depth: simple, single layer Skin layer closed with: skin adhesive Medical Decision Making Medical Decision Making MDM Narrative: 59-year-old female presents for evaluation of a minor head injury. Her car door accidentally closed and struck her in the head. There was no loss of consciousness, she has no neuro deficits. She had a small laceration that was closed with Dermabond, see procedure note. No evidence of orbital fracture. A CT scan of the brain was ordered which does not show any intracranial hemorrhage. The patient be discharged. She reports that her vaccines are up-to-date. Differential Diagnosis Differential Diagnoses: The differential diagnosis associated with the pre sentation includes Contusion Laceration Abrasion Concussion Radiology Impression Discussion of test interpretation with radiology: I have reviewed the radiologist's reading. Radiologist Impression: Findings: No intra-axial mass, midline shift, hydrocephalus, or acute hemorrhage. No significant atrophy. Mild focal right anterior and lateral frontal periventricular white matter hypodensities nonspecific and may represent white matter chronic ischemic changes. There is no sinus or mastoid fluid. The orbits are within normal limits. There is no acute skull fracture. IMPRESSION: 1. No acute intracranial findings. 2. Mild focal supratentorial periventricular right frontal hypodensities may represent white matter chronic ischemic changes. This document has been electronically signed by: Ronel Cerrato MD on 02/13/2025 19:06:12 Discharge Plan Discharge Clinical Impression: Facial laceration Patient Disposition: Home, Self-Care Instructions: Laceration (ED) Additional Instructions: Your CT scan did not show any significant abnormalities. You can use ibuprofen/Tylenol as needed for any pain. Your wound was closed with Dermabond skin glue Do not shower tonight, but tomorrow you may shower as normal Prescriptions: No Action ondansetron 4 mg tablet,disintegrating 4 mg PO Q6H PRN (Reason: nausea and vomiting) Qty: 14 0RF loperamide 2 mg capsule 2 mg PO Q4H PRN (Reason: loose stool) Qty: 14 0RF Rx Instructions: administer after each loose stool until symptoms controlled; do not exceed 8 mg per 24 hrs lidocaine [Lidoderm] 5 % adhesive patch,medicated 1 patch topical DAILY Qty: 15 0RF Rx Instructions: leave on most painful area for up to 12 hrs naproxen 500 mg tablet 500 mg PO Q8-12H PRN (Reason: pain (scale score 1-3)) Qty: 20 0RF ketorolac 10 mg tablet 10 mg PO Q6H PRN (Reason: pain) Qty: 20 0RF Rx Instructions: maximum total duration of 5 days from all oral, intranasal, or parenteral formulations. Patient received an intramuscular dose of Toradol here in the emergency room methylprednisolone [Medrol (Madhav)] 4 mg tablets,dose pack 4 mg PO QAM Qty: 21 0RF Rx Instructions: Take per package instructions methocarbamol 750 mg tablet 1,500 mg PO Q8H PRN (Reason: pain, moderate) Qty: 24 0RF Interventions: ED Discharge Assessment Last Done: 02/13/25 20:43 Discharge Date/Time: 02/13/25 20:44 Print Language: Burkinan
--- OUTSIDE RECORDS SUMMARY | 2025-02-13 19:37 | XMS_ITS | Encounter Summary ---
Author Organization [employer] Address [address] [facility] [address] [place] [address] Care Team Providers Care Truck Driver Heavy Name Role Phone Wendy Delaney Primary Care Provider [phone] Meagan Melendez MD Primary Care Provide r Encounter Details Date Type Department Care Team ([facility] st Contact Info) Description 02/04/2023 Orders Only [facility] [address] [place] [address] Wendy Delaney FNP [address] [place] [address] Immunization deficiency (Primary Dx) Social History Tobacco [...] Description 03/07/2025 2:30 PM EST Office Visit [facility] [address] [place] [address] Juan, [place], OD [address] [place] [address] documented as of this encounter Procedures Procedure Name Priority Date/Time Associated Diagnosis Comments MEASLES, MUMPS, AND RUBELLA (MMR) AB (IGG) PANEL, IMMUNE STATUS Routine 03/11/2023 10:07 AM EST Immunization deficiency documented in this encounter Results * Measles, Mumps, and Rubella (MMR) Antibodies??(IgG) Panel, Immune Status (03/11/2023 10:07 AM EST) Mumps Virus IgG Antibody 106.00 AU/mL [facility] Comment:AU/mL Interpretation ------- <9.00 Not consistent with immunity9.00-10.99 Equivocal>10.99 Consistent with immunityThe presence of mumps IgG antibody suggests immunizationor past or current infection with mumps virus. Rubella IgG Antibody 7.28 Index [facility] Comment:Index Interpretation ----- <0.90 Not consistent with immunity 0.90-0.99 Equivocal > or = 1.00 Consistent with immunityThe presence of rubella IgG antibody suggestsimmunization or past or current infection withrubella virus.THIS TEST WAS PERFORMED AT:[facility] [place] [id number] REAL MD Rubeola IgG (Measles) >300.00 AU/mL [facility] Comment:AU/mL Interpretation ----- <13.50 Not consistent with .50-16.49 Equivocal>16.49 Consistent with immunityThe presence of measles IgG suggests immunization orpast or current infection with measles virus.For additional information, please refer tohttp://education.[employer]/faq/QMK325(This link is being provided for informational/educational purposes only.) Blood 03/11/2023 10:0 7 AM EST 03/11/2023 11:59 AM EST Wendy RAMIREZ LAB BLOOD ORDERABLES Final Resu lt [facility] [address] [place] [address] [phone] documented in this encounter Visit Diagnoses Diagnosis Immunization deficiency- Primary documented in this encounter Additional Health Concerns Assessment Noted Time PHQ-9 Depression Total Score: 1 07/19/19 23 2:13 PM EDT documented as of this encounter Care Teams Truck Driver Heavy Relationship Specialty Start Date End Date Wendy Delaney FNP [address] [place] [address] PCP - General Family Medicine 11/06/22 12/22/23 Meagan Melendez MD [address] [place] [address] PCP - General Internal Medicine 12/23/23 documented as of this encounter
--- OUTSIDE RECORDS SUMMARY | 2025-02-13 19:37 | XMS_ITS | Clinical Summary ---
Author Organization [employer] Address [address] [facility] [address] [place] [address] Care Team Providers Care Career And Technology Education Teacher Name Role Phone Meagan Melendez MD Primary [...] Description 03/07/2025 2:30 PM EST Office Visit [facility] OPTOM[facility] [address] [place] [address] Juan, [place], OD [address] [place] [address] Health Maintenance Due Date Last Done Comments [...] AM EDT Narrative 10/10/2024 12:11 PM EDT [facility] [address] [place] [address] Mammography Report Signed Patient: Clarita Potter MR#: [id number] : 1965 Acct:[id number] Age/Sex: 59 / F ADM Date: 10/05/24 Loc: HO.MAMMO Attending Dr: Wendy Delaney NP Ordering Physician: Wendy Delaney NP Results: 1Negativ e Date of Service: 10/05/24 Follow Up: 1 Year From Orig inal Mammogram Procedure(s): MM tomosynthesis screening BI Accession Number(s): [id number] cc: Wendy Delaney NP; Aris Doc,Nargis MD EXAMINATION: MM SCREENING DIGITAL BREAST [...] 10/10/24 1208 DD/ 0740 TD/TT: 10/05/24 0800 Casino Runner: Procedure Note Donotuseinterpreter, Image - 10/10/2024 [facility] [address] [place], [place] [address] Mammography Report Signed Patient: Clarita Potter#: [id number] : 1965Acct:[id number] Age/Sex: 59 / FADM Date: 10/05/24 Loc: HO.MAMMO Attending Dr: Wendy Delaney NP Ordering Physician: Wendy Delaney NPResults: 1Negativ e Date of Service: 10/05/24Follow Up: 1 Year From Orig inal Mammogram Procedure(s): MM tomosynthesis screening BI Accession Number(s): [id number] cc: Wendy Delaney FACULTY RESEARCH PHYSICIAN; Ana Lagunas MD EXAMINATION: MM SCREENING DIGITAL [...] 10/10/24 1208 DD/ 0740 TD/TT: 10/05/24 0800 Casino Runner: Wendy Delaney PLANNING TECHNICIAN IMG BI PROCEDURES Final Result from Last 3 Months or Most Recently Relevant to Health Maintenance Insurance [facility] C3 HSN FULL [address] [place] [id number] Care Teams Career And Technology Education Teacher Relationship Specialty Start Date End Date Meagan Melendez MD [address] [place] [id number] PCP - General Internal Medicine 12/23/23
[2025-02-13 20:43] VITALS: BP 118/62; PULSE 79; RESP 16; TEMP 36.6; O2SAT 99
== END 2025-02-13 20:44 | disposition home or self-care (01) ==
PROVIDERS: Emergency Provider Emergency Medicine; PCP Internal Medicine
DX: S01.112A Laceration without foreign body of left eyelid and periocular area, initial encounter (principal); H57.12 Ocular pain, left eye; W26.9XXA Contact with unspecified sharp object(s), initial encounter; Y93.9 Activity, unspecified; Y92.9 Unspecified place or not applicable; Y99.8 Other external cause status
CPT/HCPCS: 70450; 99282; 99284

== ENCOUNTER → 2025-02-13 17:13 | Outpatient (BNV) | payer MEDICAID, SELFPAY | PROVIDERS: PCP Internal Medicine; Visit Provider Specialist | DX: S09.90XA Unspecified injury of head, initial encounter (principal); W22.8XXA Striking against or struck by other objects, initial encounter | CPT/HCPCS: 70450 ==